=== PATIENT | male | born 1985 | race American Indian/Alaskan Native ===

== ENCOUNTER 2016-09-16 22:37 | Emergency (ER) | payer SELFPAY ==
[2016-09-17] MEDS ORDERED: MAGIC MOUTHWASH PO ONE (03:03)
--- NOTE | 2016-09-17 03:17 | Emergency Department Report ---
HPI - General Chief Complaint: Upper Respiratory Infection Time Seen by Provider: 09/17/16 02:52 - HPI HPI: Patient is a 31-year-old male who presents to the ED complaining of throat pain 2 days, left eye redness 2 days. Patient states about 2 days ago he began experiencing localized pain. His throat and as days go by a began to have some pain with swallowing and eating. Patient denies cough or fever or chills or nausea or vomiting. Patient also states the past 2 days he notices eyes as very red and itching. Patient states he has fussy drainage from lft eye intermittent throughout the day. He denies any trauma to the eye. Or any feeling of object in eye. Patient denies blurred vision. Patient also states he had so all on the right inner check of his buttock that he noticed today. ED Past Medical Hx - Past Medical History Previous Medical History?: No - Surgical History Past Surgical History?: No - Social History Smoking Status: Current Every Day Smoker Substance Use Type: Alcohol, Marijuana - Medications Home Medications: Home Medications Medication Instructions Recorded Confirmed Last Taken Type HYDROcodone/APAP 10-325 [[place] 1 each PO Q6HR PRN #16 tablet 01/14/15 Unknown Rx 10/325] Sulfamethoxazole/Trimethoprim 1 each PO Q12H #20 tablet 01/14/15 Unknown Rx [Bactrim Ds] predniSONE [Deltasone] 20 mg PO TID #12 tab 01/14/15 Unknown Rx Cephalexin [Keflex] 250 mg PO BID #14 capsule 09/17/16 Unknown Rx Ibuprofen [Motrin] 800 mg PO Q8HR PRN #30 tablet 09/17/16 Unknown Rx Polymyxin B Sulf/Trimethoprim 1 drop OP QID #10 ml 09/17/16 Unknown Rx [Polytrim Eye Drops 25741iatet/0.1%] ED Review of Systems ROS: Stated complaint: RED EYES,BOIL,TONSILS ISSUES Other details as noted in HPI Constitutional: denies: chills, fever Eyes: eye discharge. denies: eye pain, vision change ENT: throat pain. denies: ear pain, dental pain, hearing loss, epistaxis Respiratory: denies: cough, shortness of breath, wheezing Cardiovascular: denies: chest pain, palpitations Endocrine: no symptoms reported. denies: increased hunger Gastrointestinal: denies: abdominal pain, nausea, vomiting, diarrhea, constipation, hematemesis Genitourinary: denies: urgency, dysuria, frequency, hematuria, testicular pain, testicular mass Musculoskeletal: denies: back pain, joint swelling, arthralgia Skin: denies: rash, lesions, pruritus Neurological: denies: headache, weakness, paresthesias Psychiatric: denies: anxiety, depression, auditory hallucinations Hematological/Lymphatic: denies: easy bleeding, easy bruising, swollen glands Physical Exam - Physical Exam Vital Signs: Vital Signs 09/17/16 01:01 Temperature 97.7 F Pulse Rate 70 Respiratory 20 Rate Blood Pressure 143/88 [Left] O2 Sat by Pulse 97 Oximetry Physical Exam: GENERAL: Alert and oriented x3, no apparent distress, Normal Gait, atraumatic. HEAD: Head is normocephalic and a-traumatic. EYES: Extra ocular muscles are intact. Pupils are equal, round, and reactive to light and accommodation. Left sclera erythematous, tender to palpation of upper eyelid. Mild yellowish discharge seen EARS: symetrical, atraumatic, non tender, ear canal clear and moderate cerumen, tympanic membrance non inflamed. gross auditory nml bilaterally. NOSE: Nose symetrical, Nontender,Nares appeared normal. MOUTH:Mouth is well hydrated and without lesions. Tonsils erythematous and swollen, Uvula midline, Tongue not elevated. Mucous membranes are moist. Posterior pharynx exudate, no lesions. Patent airways. NECK: Supple. Non edematous, No carotid bruits. No lymphadenopathy or thyromegaly. LUNGS: Symetrical with respiration, No wheezing, no rales or crackles, CTAB. HEART: S1, S2 present, regular rate and rhythm without murmur, no rubs, no gallops. ABDOMEN: No organomegaly was noted,Positive bowel sounds, soft, and non- distended. . Nontender to palpation on all Quadrants, NO CVA tenderness. EXTREMITIES/MUSCULOSKELETAL: No cyanosis, clubbing, rash, lesions or edema. Full ROM bilaterally. UE/LE Pulses 2+ bilaterally. NEUROLOGIC: No focal Deficit, Cranial nerves II through XII are grossly intact. No loss of sensation, PSYCHIATRIC: Mood is congruent with affect, denies suicidal or homicidal ideations. SKIN: Warm and dry, No lesions, No ulceration or induration present. Small 1 cm boil seen in her right buttock, tender to palpation. non draining. Non- fluctuant ED Course Vital Signs 09/17/16 01:01 Temperature 97.7 F Pulse Rate 70 Respiratory 20 Rate Blood Pressure 143/88 [Left] O2 Sat by Pulse 97 Oximetry ED Medical Decision Making - Medical Decision Making 31-year-old male presents with upper respiratory infection/conjunctivitis ED course: Magic mouthwash ordered. Rapid strep test ordered. Rapid strep test negative Visual acuity: Left eye 22/70, Right eye 20/70, bilateral 20/70 Discussed results with patient. Discussed with symmetry due to presentation Patient to receive 1.2 million units of penicillin. Penicillin administered to treat empirically due to physical exam indicating if of acute bacterial pharyngitis. Vital signs stable. Patient is in no acute or respiratory distress. Discussed home medication of antibiotics for mild bilateral cellulitis. Discussed antibiotic eyedrops for conjunctivitis how to use. She verbally states he understands and will comply to follow-up. Discussed the follow up with primary care physician. Critical care attestation.: If time is entered above; I have spent that time in minutes in the direct care of this critically ill patient, excluding procedure time. ED Disposition Clinical Impression: Acute bacterial tonsillitis Conjunctivitis Qualifiers: Conjunctivitis type: acute Acute conjunctivitis type: unspecified Laterality: left Qualified Code(s): H10.32 - Unspecified acute conjunctivitis, left eye Disposition: DISCHARGED TO HOME OR SELFCARE Is pt being admited?: No Does the pt Need Aspirin: No Condition: Stable Instructions: Strep Throat (ED), Conjunctivitis (ED), Tonsillitis (ED) Prescriptions: Cephalexin [Keflex] 250 mg PO BID #14 capsule Ibuprofen [Motrin] 800 mg PO Q8HR PRN #30 tablet PRN Reason: Pain Polymyxin B Sulf/Trimethoprim [Polytrim Eye Drops 90645igwfi/0.1%] 1 drop OP QID #10 ml Referrals: PRIMARY CARE, [Primary Care Provider] - 3-5 Days DAJA FISHER MD [Referring] - 3-5 Days LUIS PARRA MD [Referring] - 3-5 Days [facility] [Outside] - 3-5 Days [facility] [Outside] - 3-5 Days Forms: Work/School Release Form(ED) Time of Disposition: 03:52
[2016-09-17] MEDS ORDERED: BICILLIN L-A IM ONE (03:49)
[2016-09-17 04:06] VITALS: BP 138/77
== END 2016-09-17 04:50 | disposition home or self-care (01) ==
LOC: ED 22:37
DX: J03.90 Acute tonsillitis, unspecified (principal); H10.32 Unspecified acute conjunctivitis, left eye; F12.10 Cannabis abuse, uncomplicated; F17.200 Nicotine dependence, unspecified, uncomplicated
CPT/HCPCS: 87116; 87430; 96372; 99283; J0561

== ENCOUNTER 2017-11-12 12:30 | Emergency (ER) | payer OTHER ==
--- NOTE | 2017-11-12 17:55 | Emergency Department Report ---
Abscess Boil HPI - HPI Chief Complaint: Skin/Abscess/Foreign Body Stated Complaint: ABSCESS LEFT ARMPIT Time Seen by Provider: 11/12/17 16:14 Duration: 3 Days Location: Upper Extremity (armpit) Severity: Severe (8/10) History: Yes Pain (with movement), Yes Previous History (patient said he has had several episodes of abscess in the past.), No Fever, No Purulent Drainage, No Numbness, No Foreign Body, No Insect Bite HPI: Patient here for abscess to left armpit. It's documented in triage nurse noted that its patient right armpit. Tetanus vaccine is up-to-date. Patient said that he had a small bump that got bigger over 3 days. Pain 8 out of 10 with movement.no medication taken. Denies any fever or chills. Denies any radiation of pain distally. Home Medications: Previous Rx's Medication Instructions Recorded Last Taken Type HYDROcodone/APAP 10-325 [[place] 1 each PO Q6HR PRN #16 tablet 01/14/15 Unknown Rx 10/325] predniSONE [Deltasone] 20 mg PO TID #12 tab 01/14/15 Unknown Rx Cephalexin [Keflex] 250 mg PO BID #14 capsule 09/17/16 Unknown Rx Polymyxin B Sulf/Trimethoprim 1 drop OP QID #10 ml 09/17/16 Unknown Rx [Polytrim Eye Drops 91229wptja/0.1%] Ibuprofen [Motrin 800 MG tab] 800 mg PO Q8HR PRN #15 tablet 11/12/17 Unknown Rx Sulfamethoxazole/Trimethoprim 1 each PO Q12H 10 Days #20 tablet 11/12/17 Unknown Rx [Bactrim DS TAB] Allergies/Adverse Reactions: Allergies Allergy/AdvReac Type Severity Reaction Status Date / Time No Known Allergies Allergy Unverified 01/14/15 05:08 ED Review of Systems ROS: Stated complaint: ABSCESS LEFT ARMPIT Other details as noted in HPI Comment: All other systems reviewed and negative Constitutional: no symptoms reported Respiratory: no symptoms reported Cardiovascular: denies: chest pain, palpitations, dyspnea on exertion, edema, syncope, paroxysmal nocturnal dyspnea Gastrointestinal: denies: nausea, vomiting Musculoskeletal: denies: back pain, joint swelling, arthralgia, myalgia Skin: other (boil) Neurological: denies: headache ED Past Medical Hx - Past Medical History Previous Medical History?: No - Surgical History Past Surgical History?: No - Family History Family history: no significant - Social History Smoking Status: Current Every Day Smoker Substance Use Type: None - Medications Home Medications: Home Medications Medication Instructions Recorded Confirmed Last Taken Type HYDROcodone/APAP 10-325 [[place] 1 each PO Q6HR PRN #16 tablet 01/14/15 Unknown Rx 10/325] predniSONE [Deltasone] 20 mg PO TID #12 tab 01/14/15 Unknown Rx Cephalexin [Keflex] 250 mg PO BID #14 capsule 09/17/16 Unknown Rx Polymyxin B Sulf/Trimethoprim 1 drop OP QID #10 ml 09/17/16 Unknown Rx [Polytrim Eye Drops 13376skahr/0.1%] Ibuprofen [Motrin 800 MG tab] 800 mg PO Q8HR PRN #15 tablet 11/12/17 Unknown Rx Sulfamethoxazole/Trimethoprim 1 each PO Q12H 10 Days #20 tablet 11/12/17 Unknown Rx [Bactrim DS TAB] ED Abscess Boil Physical Exam - Exam General: Vital signs noted. No distress. Alert and acting appropriately. This is a 32-year-old male well-nourished well-developed in no acute distress. Front/Back of Body, Lg (Color): 1 - Patient with quarter size indurated, nonfluctuant area to left armpit. Tender to palpate. No drainage. Mild cellulitis surrounding indurated area. Size: 1 cm Exam: Yes Tenderness (left axilla), Yes Surrounding Cellulites/Erythema, Yes Normal Neurologic Exam (alert and oriented 3, normal gait), Yes Normal Circulation (clubbing, cyanosis or edema to extremities. +2 pulses to extremities. No neurovascular compromise), No Fluctuance, No Lymphangitis, No Crepitation, No Heart Murmur Exam: Lungs: Clear to auscultation bilaterally, no rhonchi wheezes or rales. cardiovascular: S1-S2, regular rate rhythm. Psych: Normal mood and behavior I & D Note - I & D Note I & D Note: No incision and drainage of abscess due to indurated and no fluctuance. Patient to return in 4 days for incision and drainage. He was given clindamycin injection and will be sent home on antibiotic. ED Course Vital Signs 11/12/17 13:28 Temperature 98.4 F Pulse Rate 60 Respiratory 18 Rate Blood Pressure 139/83 O2 Sat by Pulse 100 Oximetry - Reevaluation(s) Reevaluation #1: 11/12/17 18:34 Patient given clindamycin 600 mg IM, Motrin 800 mg po in emergency room without any adverse reaction. Critical care attestation.: If time is entered above; I have spent that time in minutes in the direct care of this critically ill patient, excluding procedure time. ED Medical Decision Making - Medical Decision Making ED course: Patient was simple abscess to the left axilla thus been ongoing for 3 days. Physical findings for 1 cm indurated area with surrounding cellulitis to left axilla. Area is nonfluctuant and unable to be drained at this time. I discussed the patient that he needs to apply warm compresses to affected area to facilitate soft then and drainage of abscess. I also discussed with him that if area is not draining within 3-4 days he needs to return to the emergency room for incision and drainage. Patient was given clindamycin 600 mg IM and Motrin 800 mg by mouth. He had no adverse reaction. He voiced understanding of discharge instruction, treatment plan and needed follow-up. Tetanus vaccine is up-to-date. Discharged home in stable condition with prescription for Motrin and Bactrim DS ED Disposition Clinical Impression: Simple abscess, Cellulitis of axilla, left Disposition: DC-01 TO HOME OR SELFCARE Is pt being admited?: No Does the pt Need Aspirin: No Condition: Stable Instructions: Cellulitis (ED), Abscess (ED) Additional Instructions: Please keep affected ear clean and dry Take antibiotic twice a day for [address] warm compresses to affected area 3-4 times a day to facilitate drainage Return to emergency room in 3-4 days for incision and drainage of abccess the left arm. Take Motrin as prescribed for pain Prescriptions: Ibuprofen [Motrin 800 MG tab] 800 mg PO Q8HR PRN #15 tablet PRN Reason: Pain Sulfamethoxazole/Trimethoprim [Bactrim DS TAB] 1 each PO Q12H 10 Days #20 tablet Referrals: [facility] [Outside] - 11/16/17 please return to, emergency room [Other] - 11/16/17 (For evaluation of abscess to left arm.) Forms: Work/School Release Form(ED)
[2017-11-12] MEDS ORDERED: CLEOCIN IM ONE (17:56)
[2017-11-12] MEDS ORDERED: MOTRIN PO ONE (17:56)
[2017-11-12 18:53] VITALS: BP 140/80
== END 2017-11-12 18:52 | disposition home or self-care (01) ==
LOC: ED 12:30
DX: L02.412 Cutaneous abscess of left axilla (principal); L03.112 Cellulitis of left axilla; F17.200 Nicotine dependence, unspecified, uncomplicated
CPT/HCPCS: 96372